=== PATIENT | female | born 1940 | race Caucasian/White ===

== ENCOUNTER → 2017-04-25 10:39 | Outpatient (CLI) | payer MEDICARE, OTHER, SELFPAY ==
[2017-04-25 11:45] LABS: AST(SGOT) 16 U/L (15-37); Alanine Aminotransfer ALT/SGPT 19 U/L (13-56); Albumin, Serum 3.7 g/dL (3.2-5.0); Alkaline Phosphatase 80 U/L (45-117); Bilirubin, Direct 0.13 mg/dL (0.00-0.30); Cholesterol 182 mg/dL (200); Globulin 3.7 g/dL (2.2-4.2); High Density Lipoprotein 42 mg/dL; Protein, Total 7.4 g/dL (6.4-8.2); Triglycerides 170 mg/dL; Very Low Density Lipoprotein 34 mg/dL (5-40)
== END ==
PROVIDERS: Family Provider Student in an Organized Health Care Education/Training Program; PCP Student in an Organized Health Care Education/Training Program; Visit Provider Internal Medicine Cardiovascular Disease
DX: E78.5 Hyperlipidemia, unspecified (principal); Z79.899 Other long term (current) drug therapy
CPT/HCPCS: 36415; 80061; 80076

== ENCOUNTER → 2017-11-01 06:58 | Outpatient (CLI) | payer MEDICARE, OTHER, SELFPAY ==
--- NOTE | 2017-11-01 10:56 | STRESSREP ---
Stress Test Report Date: 11/01/2017 Procedure: Pharmacologic stress nuclear imaging study Indications: CAD; non-ST segment elevation PR; PCI Consent: Per the patient Procedure: The patient underwent pharmacologic (Regadenoson) evaluation with a peak heart rate of 117 beats per minute (81 predicted maximal heart rate) and a peak blood pressure of 134/72 mmHg. The baseline ECG demonstrated normal sinus rhythm; poor R-wave progression; nonspecific ST segment abnormality. The peak pharmacologic ECG demonstrated no obvious ECG changes. There was an occasional PAC during recovery. There was no complaint of chest discomfort during pharmacologic infusion or recovery. The examination was discontinued secondary to completion of protocol. Impression: 1. Pharmacologic (Regadenoson) evaluation 2. Peak pharmacologic ECG with no obvious ECG changes. 3. There was an occasional PAC during recovery 4. Nuclear images pending Myocardial perfusion imaging study: Technique: The patient was injected with 11 millicuries of technetium 99m Cardiolite and subsequently rest SPECT Cardiolite nuclear imaging was obtained in the horizontal long, vertical long, and short axis views. The patient underwent pharmacologic (Regadenoson) evaluation with a peak heart rate of 117 beats per minute (81 % percent predicted maximal heart rate) and a peak blood pressure of 134/72 mmHg. The patient was injected with 33.6 millicuries of technetium 99m Cardiolite and subsequently stress SPECT Cardiolite nuclear imaging was obtained in the horizontal long, vertical long, and short axis views. A gated Cardiolite study at peak stress was obtained. Interpretation: Rest and stress SPECT Cardiolite nuclear imaging status post realignment, normalization, and attenuation correction demonstrate areas of extracardiac/hepatic gastrointestinal tracer uptake near the inferior segments and otherwise relative uniform tracer uptake. There is end systolic thickening and brightening. The gated Cardiolite study demonstrates myocardial thickening and inward wall motion. The reported LVEF is 70 %. Impression: 1. Rest and stress SPECT Cardiolite nuclear imaging demonstrate areas of extracardiac/gastrointestinal tracer uptake near the inferior segments and otherwise relative uniform tracer uptake and myocardial perfusion appearing within normal limits. 2. The gated Cardiolite study reports an LVEF of 70 %. This note was generated with [employer] software. It may contain incorrect words, spelling, and punctuation that were not noted in checking the note before signing.
--- NOTE | 2017-11-01 11:03 | STRESSREP_ITS ---
Stress Test Report Date: 11/01/2017 Procedure: Pharmacologic stress nuclear imaging study Indications: CAD; non-ST segment elevation [place]; PCI Consent: Per the patient Procedure: The patient underwent pharmacologic (Regadenoson) evaluation with a peak heart rate of 117 beats per minute (81 predicted maximal heart rate) and a peak blood pressure of 134/72 mmHg. The baseline ECG demonstrated normal sinus rhythm; poor R-wave progression; nonspecific ST segment abnormality. The peak pharmacologic ECG demonstrated no obvious ECG changes. There was an occasional PAC during recovery. There was no complaint of chest discomfort during pharmacologic infusion or recovery. The examination was discontinued secondary to completion of protocol. Impression: 1. Pharmacologic (Regadenoson) evaluation 2. Peak pharmacologic ECG with no obvious ECG changes. 3. There was an occasional PAC during recovery 4. Nuclear images pending Myocardial perfusion imaging study: Technique: The patient was injected with 11 millicuries of technetium 99m Cardiolite and subsequently rest SPECT Cardiolite nuclear imaging was obtained in the horizontal long, vertical long, and short axis views. The patient underwent pharmacologic (Regadenoson) evaluation with a peak heart rate of 117 beats per minute (81 % percent predicted maximal heart rate) and a peak blood pressure of 134/72 mmHg. The patient was injected with 33.6 millicuries of technetium 99m Cardiolite and subsequently stress SPECT Cardiolite nuclear imaging was obtained in the horizontal long, vertical long, and short axis views. A gated Cardiolite study at peak stress was obtained. Interpretation: Rest and stress SPECT Cardiolite nuclear imaging status post realignment, normalization, and attenuation correction demonstrate areas of extracardiac/ hepatic gastrointestinal tracer uptake near the inferior segments and otherwise relative uniform tracer uptake. There is end systolic thickening and brightening. The gated Cardiolite study demonstrates myocardial thickening and inward wall motion. The reported LVEF is 70 %. Impression: 1. Rest and stress SPECT Cardiolite nuclear imaging demonstrate areas of extracardiac/gastrointestinal tracer uptake near the inferior segments and otherwise relative uniform tracer uptake and myocardial perfusion appearing within normal limits. 2. The gated Cardiolite study reports an LVEF of 70 %. This note was generated with [employer] software. It may contain incorrect words, spelling, and punctuation that were not noted in checking the note before signing.
== END ==
PROVIDERS: Family Provider Student in an Organized Health Care Education/Training Program; PCP Student in an Organized Health Care Education/Training Program; Visit Provider Physician Assistant Medical
DX: I25.10 Atherosclerotic heart disease of native coronary artery without angina pectoris (principal); I10 Essential (primary) hypertension; E78.00 Pure hypercholesterolemia, unspecified
CPT/HCPCS: 78452; 93017; A9500; A4216; J2785

== ENCOUNTER 2018-08-21 16:27 | Emergency (ER) | payer MEDICARE, OTHER, SELFPAY ==
[2018-08-21 16:28] VITALS: BP 145/86; PULSE 88; RESP 17; TEMP 36.8; O2SAT 98; BMI 24.0
--- NOTE | 2018-08-21 16:48 | CT_ITS ---
STUDY: CT ABDOMEN AND PELVIS WITH CONTRAST REASON FOR EXAM: Female, 77 years old. Constipation RADIATION DOSAGE (If Supplied By Facility): DLP = ( 512.27 ) mGycm TECHNIQUE: Transaxial images were obtained from the dome of the diaphragm to the symphysis pubis with oral contrast. 100 ml of Isovue 300 contrast was administered. Sagittal and coronal images were reconstructed. Individualized dose optimization techniques were used for this CT. COMPARISON: None. FINDINGS: The visualized lung bases are clear. The visualized portions of the heart and pericardium are within normal limits. There are no calcified gallstones present. Bulbar wall thickening towards the neck is present, likely reactive. The liver is within normal limits. There are no suspicious hepatic lesions. The spleen is normal in size. There is a 1.1 cm pancreatic head low density lesion, likely representing a cyst. The adrenal glands are within normal limits. There are no obstructing renal stones. There is no hydronephrosis. There are no focal renal lesions. Normal visualized stomach. There is prominent increased fat attenuation surrounding the proximal duodenum with duodenal wall thickening. There is associated regional lymphadenopathy and trace free fluid. 1.9 cm x 0.8 soft tissue density present anterior to the IVC. At the inferior aspect of this is a marginated hyperdense region measuring 1.4 x 1.1 x 1.1 cm in size. Colonic diverticulosis is present. There is no evidence of bowel obstruction. The aorta is normal in caliber. There is no abdominal or pelvic free air. There are no destructive osseous lesions. There is increased fat attenuation posterior to the left ischium. Multilevel degenerative changes of the spine are present. Grade 1 spondylolisthesis is present at the L4-L5 level. CT/Abdomen/Pelvis WITH Contrast IMPRESSION: Increased fat attenuation surrounding the proximal duodenum in association with duodenal wall thickening with prominent associated lymphadenopathy as described above. Consistent in appearance with proximal duodenitis, with possible peptic ulcer disease, neoplasm, infectious, or inflammatory process. Endoscopy is suggested for further assessment. 1.1 cm pancreatic head hypodensity, likely representing a cyst. Possibly represents an IPMN. Pancreatic protocol MRI is suggested for further characterization. Increased fat attenuation posterior to the left ischium. Correlate with physical examination to assess for cellulitis/ulceration. N.B. : The above information has been verbally conveyed by Wili Putnam to Dr. Franky Langston MD, on 08/21/2018 19:51:58 (ET). Electronically Signed: Wili Putnam, at 19:25 EDT Tel , Service support ,
[2018-08-21 17:15] LABS: Absolute Lymphocyte Count 0.82 X10^3/ul (0.83-4.51); Absolute Neutrophil Count 6.2 X10^3/uL (2.0-7.7); Basophil# 0.01 X10^3/uL; Basophil% 0.1 % (0-1); Eosinophil# 0.14 X10^3/uL; Eosinophils% 1.9 % (0-5); Hematocrit 41.7 % (37-47); Hemoglobin 13.6 g/dl (12.0-15.0); Lymphocyte # 0.82 X10^3/ul (4.0); Mean Corp Hgb Conc 32.6 g/gl (32-36); Mean Corpuscular Hgb 29.3 pg (27.0-32.0); Mean Corpuscular Volume 89.9 fL (81-99); Mean Platelet Vol. 10.8 fl (6.2-12.0); Neutrophil # 6.18 X10^3/uL (2.7-7.7); Neutrophil % 82.9 % (47-70); POSITIVE COUNT NO; POSITIVE DIFFERENTIAL NO; POSITIVE MORPHOLOGY NO; Platelet Count 243 K/mm3 (150-450); RBC Distribution Width CV 12.6 % (11.6-14.6); RBC Distribution Width SD 41.1 fl (35.1-43.9); Red Blood Count 4.64 M/mm3 (4.2-5.4); White Blood Count 7.5 K/mm3 (4.4-11.0)
[2018-08-21 17:25] LABS: AST(SGOT) 17 U/L (15-37); Alanine Aminotransfer ALT/SGPT 13 U/L (13-56); Albumin, Serum 3.6 g/dL (3.2-5.0); Alkaline Phosphatase 84 U/L (45-117); Anion Gap 6 (5-15); BUN 12 mg/dL (7-18); BUN/Creat Ratio 15.6 RATIO (10-20); Chloride 107 mmol/L (98-107); Creatinine, Serum 0.77 mg/dL (0.55-1.02); EST Glomerular Filtration Rate 77 mL/min (>60); Est Glom Filt Rate - Afr Amer 94 mL/min (>60); Estimated Creatinine Clearance 40.68 ml/min; Globulin 3.7 g/dL (2.2-4.2); Glucose 93 mg/dL (74-106); Potassium 3.8 mmol/L (3.5-5.1); Protein, Total 7.3 g/dL (6.4-8.2); Sodium Level 140 mmol/L (136-145)
[2018-08-21 18:29] LABS: Mucous, Urine 0 SEEN /hpf (<or=2+)
[2018-08-21 18:38] LABS: Color, Urine Yellow (Yellow); Glucose, Dipstick Normal (Normal); Leukocyte Esterase-Dipstick 500 /ul (Negative); Nitrite-Dipstick Negative (Negative); Occult Blood-Urine 10 /ul (Negative); Protein-Dipstick Negative (Negative); Urine Bilirubin Dipstick Negative (Negative); Urine Clarity Sl. Cloudy (Clear); Urine Urobilinogen 1 mg/dl (Normal)
[2018-08-21 18:41] LABS: Ketone-Dipstick 150 mg/dl (Negative)
[2018-08-21 18:46] LABS: Squamous Epithelial Cells - UA 0-5 SEEN /hpf (5-10); Transitional Epithelial - Ur 0-5 SEEN /hpf (0-5)
[2018-08-21 18:47] LABS: Red Blood Cells-Urine 0-5 SEEN /hpf (0-5); White Blood Cells 50-100 SEEN /hpf (0-5)
[2018-08-21 18:48] VITALS: BP 142/74; PULSE 82; RESP 16; O2SAT 99
[2018-08-21 18:48] LABS: Bacteria RARE /hpf (None Seen)
--- NOTE | 2018-08-21 18:51 | ED.DCSUM_ITS ---
History of Present Illness Chief Complaint: Abd Pain Narrative: Patient presenting for evaluation secondary to abdominal pain. Patient reports over the course of the last month she has been having issues with constipation and abdominal pain. Patient reports that over the course of the last couple days however this has seemed to localize to the right side of her abdomen. She reports that it is not been associated with any sort of nausea vomiting or diarrhea. Patient does report that she is continuing to have constipation despite the use of [id number] remedies. Patient had an ultrasound of her pancreas that showed some cysts, she was supposed to get a scheduled CT scan coming next week, but the pain is getting bad enough to the point where she feels she cannot wait for imaging. Review of systems otherwise negative. Past Medical History - Allergies and Home Meds Allergies/Adverse Reactions: Allergies atorvastatin [From Lipitor] Adverse Reaction (Intermediate, Verified 08/21/18 16:28) myalgias Primary Care Physician: Brian Burks MD [STAFF PHYSICIAN] - As soon as possible Smoking Status: Never smoker Review of Systems All systems negative except as indicated General: Reports: Weight loss Gastrointestinal: Reports: Abdominal pain, Constipation Physical Exam Vital Signs/Narrative: Vital Signs Temp Pulse Resp BP Pulse Ox 08/21/18 18:48 82 16 142/74 H 99 08/21/18 16:28 98.3 F 88 17 145/86 H 98 General: Well nourished, Well developed, No Acute Distress Head: Normocephalic, Atraumatic Eyes: Perrl, EOMI. Negative for: Pale conjunctiva, Scleral icterus ENT: Moist mucous membranes, No rhinorrhea Neck: Supple, Nontender Cardiovascular: Regular rate, Regular rhythm, No murmurs Respiratory: No distress, CTA bilaterally, Chest nontender Abdomen: - - Right-sided abdominal tenderness that does not really localize to the upper or lower abdomen. No guarding or rebound tenderness. No evidence of diffuse rigidity. Extremities: Nontender Skin: Normal color, No rash Neurological: Alert, Oriented x3, Cranial nerves II-XII grossly intact, Normal Strength, Normal Sensation Psychological: Normal affect, Normal Mood Diagnostic/Tx/Re-eval - Medical Decision Making Patient presented secondary to abdominal pain. Laboratory work-up and urinalysis were obtained. CBC and chemistry unremarkable except for a neutrophilic predominance. Chemistry unremarkable. Urinalysis shows evidence of leukocytes in the urine. CT abdomen and pelvis with p.o. and IV contrast were performed. This shows evidence of the patient's pancreatic cyst which she knew about, but also shows a significant amount of duodenitis. I discussed this with the radiologist who says that this likely is either duodenitis versus an ulcer. Given the patient's normal white blood cell count is likely is more of an ulcer. I discussed the patient's case with Dr. Burks. Patient will be emp irically treated with omeprazole, Carafate, and amoxicillin. Patient was discharged in stable condition. Disposition: Home ED Disposition - Plan for ED Patient: Diagnosis: Duodenitis, Pancreatic cyst, UTI (urinary tract infection) Instructions: Duodenitis Prescriptions: Amoxicillin [Amoxil] 500 mg PO Q12H #28 cap Prescription Printed Sucralfate [Carafate] 1 gm PO 4X/DAY #120 tab Prescription Printed Omeprazole 40 mg PO DAILY #30 capsule.dr Prescription Printed Referrals: Brian Burks MD [STAFF PHYSICIAN] - As soon as possible
[2018-08-21 19:12] LABS: Lipase 130 U/L (73-393)
[2018-08-21 20:10] VITALS: BP 156/120; PULSE 69; RESP 16; O2SAT 96
== END 2018-08-21 20:10 ==
PROVIDERS: Emergency Provider Emergency Medicine; Family Provider Student in an Organized Health Care Education/Training Program; PCP Student in an Organized Health Care Education/Training Program
DX: K29.80 Duodenitis without bleeding (principal); K86.2 Cyst of pancreas; N39.0 Urinary tract infection, site not specified
CPT/HCPCS: 74177; 80053; 81001; 83690; 85025; 99283; A4216

== ENCOUNTER 2018-08-26 16:13 | Emergency (ER) | payer MEDICARE, OTHER, SELFPAY ==
[2018-08-26 16:14] VITALS: BP 148/80; PULSE 89; RESP 18; TEMP 36.8; O2SAT 98; BMI 23.6
--- NOTE | 2018-08-26 17:24 | ED.VISSUMM ---
- ER Visit Summary Date of Service: 08/26/18 Chief Complaint: Left flank pain resolved. History of Present Illness: The patient is a 77 F history of CAD, [place], hypertension, cardiac catheter cardiac stent and arthritis. She was seen in the emergency department on 08/21/2018. At that time with complaint of epigastric abdominal pain. Was worked up and found to possibly have duodenitis. Was placed on sucralfate and omeprazole. Also amoxicillin. At that date she had a normal CBC, chemistry, liver enzymes and lipase. Her urine showed blood but no infection. She had a CAT scan done at that time which showed duodenitis and a small kidney stone on the left in the kidney. Otherwise it was chronic changes. Today she was on the toilet urinating and had sudden onset left flank pain that lasted about a half an hour and has now totally resolved. She has decreased vision from a prior central retinal artery occlusion and could not see if she had a blood in her urine. She denies any fever. No dysuria. She has arthritis of her back but states typically she does not have pain like this. Physical Examination: Middle-aged female no acute distress. Daughter and other family members are at bedside. Vital signs are stable and afebrile. She is in no distress. Currently she is completely pain-free. She has no symptoms. States she feels much better. HEENT exam pupils are reactive to light. No facial droop. Normal speech. Neck nontender. Lungs clear to auscultation bilaterally. Heart regular rhythm no murmur. Abdomen soft and nontender normal bowel sounds no peritoneal signs. Abdomen is completely nontender. Remedies moves all 4. Neurovascular intact. Back is nontender. Where she pointed tenderness was around her left flank area. But it is now completely resolved. There is no signs of trauma. Neurologically she is awake and alert with no focal motor deficits. Test Results: I reviewed all the test the patient had on the eighth. She did normal CBC, chemistry, liver enzymes and lipase at that time she had blood in her urine but no signs of infection. She had a CAT scan done which showed duodenitis and most likely a pancreatic cyst. There is also a small stone in her left kidney. I went over all these test with the family. Emergency Department Course and Treatment: Continue her current medications for duodenitis. Today I think the patient's pain was consistent with a kidney stone now passed into her bladder. She just had an extensive work-up I do not feel re-CAT scan her at this time since she is pain-free or rechecking her labs and make any difference. Family is comfortable with that plan. I did strongly encourage him to follow-up for upper endoscopy to further evaluate the duodenitis since she has had some recent weight loss. Treatment Plan: Continue her current medications. Follow-up with her primary care physician for possible upper endoscopy due to epigastric abdominal pain and weight loss and duodenitis seen on a recent CAT scan. Disposition: Discharge Impression: Acute left flank pain resolved secondary to acute ureteral calculi This note was generated with [employer] dictation software. It may contain incorrect words, spelling, and punctuation that were not noted in review of the chart prior to signing ED Disposition - Plan for ED Patient: Referrals: Tariq Akers DO [Primary Care Provider] -
--- NOTE | 2018-08-26 17:31 | ED.DEP ---
ED Disposition - Plan for ED Patient: Disposition: Home or Assisted Living Instructions: FLANK PAIN, Uncertain Cause Referrals: Tariq Akers, [Primary Care Provider] - As soon as possible Additional Instructions: Left flank pain seems to be secondary to kidney stone that she passed. Need to follow-up with your doctor for possible upper endoscopy for further evaluation of the duodenitis and the recent weight loss. Continue the current medications are taking.
== END 2018-08-26 17:40 | disposition home or self-care (01) ==
PROVIDERS: Emergency Provider Emergency Medicine; Family Provider Student in an Organized Health Care Education/Training Program; PCP Student in an Organized Health Care Education/Training Program
DX: N20.1 Calculus of ureter (principal); M54.9 Dorsalgia, unspecified; K59.00 Constipation, unspecified; K29.80 Duodenitis without bleeding; I25.10 Atherosclerotic heart disease of native coronary artery without angina pectoris; I25.2 Old myocardial infarction; I10 Essential (primary) hypertension; H34.10 Central retinal artery occlusion, unspecified eye; M19.90 Unspecified osteoarthritis, unspecified site; Z95.5 Presence of coronary angioplasty implant and graft; Z79.82 Long term (current) use of aspirin; Z79.899 Other long term (current) drug therapy
CPT/HCPCS: 99282

== ENCOUNTER → 2020-10-03 09:16 | Outpatient (CLI) | payer MEDICARE, OTHER, SELFPAY ==
[2020-10-03 12:00] LABS: Hematocrit 46.4 % (37-47); Hemoglobin 14.7 g/dL (12.0-15.0); Mean Corp Hgb Conc 31.7 g/dL (32-36); Mean Corpuscular Hgb 29.5 pg (27.0-32.0); Mean Platelet Vol. 11.7 fl (6.2-12.0); Platelet Count 213 K/mm3 (150-450); RBC Distribution Width CV 13.2 % (11.6-14.6); RBC Distribution Width SD 45.1 fl (35.1-43.9); Red Blood Count 4.99 M/mm3 (4.2-5.4); White Blood Count 10.8 K/mm3 (4.4-11.0)
[2020-10-03 12:20] LABS: Vitamin B12 455 pg/mL (211-911)
[2020-10-03 12:53] LABS: AST(SGOT) 15 U/L (15-37); Alanine Aminotransfer ALT/SGPT 20 U/L (13-56); Albumin, Serum 3.7 g/dL (3.2-5.0); Alkaline Phosphatase 89 U/L (45-117); Anion Gap 8 (5-15); BUN 12 mg/dL (7-18); BUN/Creat Ratio 15.2 RATIO (10-20); Calcium,Total 8.7 mg/dL (8.5-10.1); Chloride 105 mmol/L (98-107); Creatinine, Serum 0.79 mg/dL (0.55-1.02); EST Glomerular Filtration Rate 75 mL/min (>60); Est Glom Filt Rate - Afr Amer 90 mL/min (>60); Globulin 3.7 g/dL (2.2-4.2); Glucose 100 mg/dL (74-106); Potassium 4.2 mmol/L (3.5-5.1); Protein, Total 7.4 g/dL (6.4-8.2); Sodium Level 139 mmol/L (136-145); Thyroid Stim Hormone (TSH) 2.51 uIU/mL (0.358-3.74)
[2020-10-03 13:27] LABS: AST(SGOT) 15 U/L (15-37); Alanine Aminotransfer ALT/SGPT 20 U/L (13-56); Albumin, Serum 3.5 g/dL (3.2-5.0); Alkaline Phosphatase 91 U/L (45-117); Bilirubin, Direct 0.19 mg/dL (0.00-0.30); Cholesterol 184 mg/dL (200); Globulin 4.2 g/dL (2.2-4.2); High Density Lipoprotein 48 mg/dL; Protein, Total 7.7 g/dL (6.4-8.2); Triglycerides 143 mg/dL; Very Low Density Lipoprotein 29 mg/dL (5-40)
[2020-10-08 20:08] LABS: Free Kappa Light Chains 25.3 mg/L (3.3-19.4); Free Lambda Light Chains 16.2 mg/L (5.7-26.3)
[2020-10-08 20:26] LABS: Vitamin B1, Thiamine 163.7 nmol/L (66.5-200.0)
== END ==
PROVIDERS: Psychiatry & Neurology Neurology; PCP Student in an Organized Health Care Education/Training Program; Referring Provider Nurse Practitioner Family; Visit Provider Nurse Practitioner Family
DX: I25.10 Atherosclerotic heart disease of native coronary artery without angina pectoris (principal); E78.00 Pure hypercholesterolemia, unspecified; G62.9 Polyneuropathy, unspecified
CPT/HCPCS: 36415; 80053; 80061; 80076; 82607; 82746; 83883; 84425; 84443; 85027

== ENCOUNTER 2021-06-15 16:55 | Inpatient (IN) | payer MEDICARE, OTHER, SELFPAY ==
[2021-06-15] VITALS (9 sets, daily range): BP systolic 148–166; BP diastolic 76–88; PULSE 79–108; RESP 12–22; TEMP 36.6–37.8; O2SAT 87–97; BMI 24.0; BMI 23.1
--- NOTE | 2021-06-15 17:17 | EKG12_ITS ---
Test Reason : Blood Pressure : / mmHG Vent. Rate : 091 BPM Atrial Rate : 091 BPM P-R Int : 150 ms QRS Dur : 088 ms QT Int : 344 ms P-R-T Axes : 075 -02 048 degrees QTc Int : 423 ms Normal sinus rhythm Nonspecific ST abnormality Abnormal ECG Confirmed by KALEB ISSA, JAMES ([id number]), editor city [place] LINDQUIST ([id number]) on 06/17/2021 9:41:48 AM Referred By: PAPO Confirmed By:JAMES MANUEL MD
--- NOTE | 2021-06-15 17:19 | EDS_ITS ---
HPI History of Present Illness Chief Complaint: Weakness Informant: patient Onset/Context/Timing Onset: Days Context: Gradual Onset Timing: Continuous Current Severity: Mild Maximum Severity: Mild Narrative Narrative: 80-year-old female lives alone at home. History of CAD, MN, stent. Also hypertension prior TIAs. Family notes since Tuesday she has had a cough anything productive. With generalized weakness. No nausea, vomiting or diarrhea. No dysuria. No fever or chills. No recent hospitalizations. Patient presents with her daughter and son at bedside. Prior similar symptoms: Yes Recent Illness/Hospitalization: No PFSH [facility] Medical History (Updated 06/15/21 @ 19:[address] Cesar Carlson MD) Atherosclerosis of coronary artery of [place] heart without angina pectoris Essential hypertension NSTEMI (non-ST elevated myocardial infarction) Old myocardial infarction Presence of stent in coronary artery (~02/22/11) Pure hypercholesterolemia Home Medications aspirin 81 mg tablet,delayed release 81 mg PO DAILY 10/11/17 [History Last Taken Unknown] acetaminophen 500 mg tablet 500 mg PO Q6H PRN 03/15/19 [History Last Taken Unknown] nitroglycerin 0.4 mg sublingual tablet 0.4 mg SUBLINGUAL Q5-15M PRN #25 tab 03/15/19 [Rx Last Taken Unknown] metoprolol tartrate 50 mg tablet 50 mg PO DAILY #90 tab 05/05/20 [Rx Last Taken Unknown] donepezil 10 mg tablet 10 mg PO QHS #90 tab 11/18/20 [Rx Last Taken Unknown] pravastatin 40 mg tablet 60 mg PO DAILY #135 tab 03/03/21 [Rx Last Taken Unknown] losartan 50 mg tablet 50 mg PO DAILY #90 tab 05/27/21 [Rx Last Taken Unknown] Allergy/AdvReac Type Severity Reaction Status Date / Time atorvastatin [From Lipitor] AdvReac Intermediate myalgias Verified 11/18/20 13:04 naproxen AdvReac Other Verified 06/15/21 16:56 Family History Father CAD (coronary artery disease) Mother CVA (cerebral vascular accident) Brother Pacemaker Son Hyperlipidemia Surgical History Presence of coronary angioplasty implant and graft (~02/22/11) Social History Smoking Status: Never smoker alcohol intake: never caffeine: No ROS ROS ED ROS Narrative Cough. Weakness. Review of Systems ROS Unobtainable: Denies due to encephalopathy Constitutional Constitutional ED: Denies chills or fever(s) Eyes Eyes: Denies change in vision ENT ENT ED: Denies ear pain, rhinorrhea or sore throat Cardiovascular Cardiovascular: Denies chest pain or palpitations Respiratory/Chest Respiratory/Chest: Reports cough and sputum; Denies dyspnea Gastrointestinal Gastrointestinal: Denies abdominal pain, constipation, diarrhea, nausea or vomiting Genitourinary Genitourinary ED: Denies dysuria or hematuria Musculoskeletal Musculoskeletal: Denies myalgias Integumentary Denies rash Neurologic Neurologic: Denies headache(s) Psychiatric Psychiatric: Denies depression Endocrine Endocrinology: Denies polyuria Allergic/Immunologic Allergic/Immunologic ED: Denies urticaria EXAM Physical Exam Narrative Exam Narrative: 80-year-old female no acute distress. Vital signs stable afebrile. Pulse ox 96% on room air no hypoxia. H EENT exam unremarkable. Moist mucous members. Neck nontender no JVD. No lymphadenopathy. Lungs dry cough. No rales, rhonchi or wheezing. Equal symmetrical. Heart regular rhythm rate about 105 no murmur. Abdomen soft nontender normal bowel sounds no peritoneal signs. Moving all 4 extremities. Calves are nontender without edema. Neurologically patient is awake and alert with no focal motor deficits. Answering questions following commands. Const Vital Signs: 06/15/21 16:56 06/15/21 17:03 06/15/21 17:30 Temperature 98.1 F Temperature Source Temporal Pulse Rate 108 H Respiratory Rate 12 Respiratory Effort Normal Non-Labored Respiratory Pattern Normal Blood Pressure 148/88 H Blood Pressure Mean 108 Pulse Ox 96 88 Oxygen Delivery Method Room Air Room Air Oxygen Flow Rate (L/min) 06/15/21 17:43 Temperature Temperature Source Pulse Rate Respiratory Rate Respiratory Effort Respiratory Pattern Blood Pressure Blood Pressure Mean Pulse Ox 96 Oxygen Delivery Method Nasal Cannula Oxygen Flow Rate (L/min) 2 Positive well nourished and well developed; Negative for obese, cachectic, contractures or unkempt General Appearance ED: well developed and NAD; Negative for unkempt, cachectic, contractures, cyanotic, diaphoretic or pallor Nutritional Appearance: Negative for cachectic or obese HEENT Reports moist mucous membranes Negative for trauma or tenderness Eyes PERRL and EOMs intact bilaterally Neck no lymphadenopathy, supple and no JVD General: Negative for tenderness Chest Wall inspection of chest normal and palpation of chest normal Resp normal respiratory effort and clear to auscultation bilaterally Auscultation: Negative for rales, rhonchi or wheezes Cardio regular rhythm, S1 normal heart sound, S2 normal heart sound and no murmurs; Negative for regular rate GI normal to inspection, nondistended, normoactive bowel sounds, non-tender, non- distended and no masses Inspection: Negative for abdominal distention Auscultation: normoactive bowel sounds Palpation: soft; Negative for tender, guarding or rebound tenderness present Back/Spine no CVA tenderness General Back: Negative for CVA tenderness Cervical Spine: Negative for cervical spine tenderness Thoracic Spine / Upper Back: Negative for thoracic spinal tenderness or paraspinal muscle tenderness Extremity normal to inspection General Extremety ED: Negative for edema or tenderness General Extremity: Negative for edema Neuro oriented x3 Sensorium / Orientation: alert; Negative for orientation impaired, lethargic or stuporous Motor Exam: strength 5/5 throughout Psych mental status grossly normal Appearance: Negative for unkempt Attitude: No agitated Mood & Affect: Negative for depressed, anxious or tearful Skin no rashes or lesions noted and no wounds General Skin Exam: Negative for elasticity normal, jaundice or pallor MDM MDM MDM Narrative Medical decision making narrative: 80-year-old female with cough and generalized weakness. Screening labs and chest x-ray to be obtained. Clinically this appears to be bronchitis rule out pneumonia rule out COVID versus viral syndrome. Repeat exam patient is doing well at 6:48 PM. They are instructed on the test results. Nurses attempted to walk the patient states she was taken off oxygen she desaturated to 87% on room air consistent with hypoxia. She was also unable to stand by herself due to her weakness. Discussed with her and the family she will be admitted. Hospitalist on page. Lab Data Attestation: I reviewed the patient's lab results. Lab results narrative: CBC White count 7. H&H 14 and 46 platelets 186. Electrolytes normal gap of 7 normal BUN and creatinine. Glucose 121. UA negative. Chest x-ray no acute process. Labs: Laboratory Results - last 24 hr 06/15/21 06/15/2122 17:30 17:30 18:32 WBC 7.0 RBC 5.06 Hgb 14.9 Hct 46.8 MCV 92.5 MCH 29.4 MCHC 31.8 L RDW Std Deviation 44.9 H RDW Coeff of [place] 13.2 Plt Count 186 MPV 11.3 Immature Gran % (Auto) 0.300 Neut % (Auto) 82.9 H Lymph % (Auto) 7.7 L [place] % (Auto) 9.0 Eos % (Auto) 0.0 Baso % (Auto) 0.1 Absolute Neuts (auto) 5.8 Absolute Lymphs (auto) 0.54 L Nucleated RBC % 0 Differential Comment SCANNED Sodium 137 Potassium 4.1 Chloride 106 Carbon Dioxide 24.0 Anion Gap 7 BUN 13 Creatinine 0.88 Estim Creat Clear Calc 44.03 Est GFR (MDRD) Af Amer 79 Est GFR (MDRD) Non-Af 65 BUN/Creatinine Ratio 14.7 Glucose 121 H Calcium 9.2 Urine Color Yellow Urine Clarity Clear Urine pH 5.0 Ur Specific [place] 1.025 Urine Protein 15 H Urine Glucose (UA) Normal Urine Ketones 15 H Urine Occult Blood Negative Urine Nitrite Negative Urine Bilirubin Negative Urine Urobilinogen Normal Ur Leukocyte Esterase Negative Urine RBC 0 SEEN Urine WBC 0 SEEN Ur Squamous Epith Cells 0 SEEN Urine Bacteria 0 SEEN Urine Mucus 0 SEEN Radiography Chest X-Ray - ED: 1 View, Read by ED Physician, Heart, Lungs, Mediastinum, Bony Structures, No Acute Disease and Chronic Changes Diagnostic Testing: Clinical Impression(s) from Imaging Studies Chest X-Ray 06/15/21 17:51 IMPRESSION: 1. No significant interval change since previous study of 01/15/2016. 2. No cardiomegaly or heart failure. 3. Mild emphysema. 4. No other evidence of active cardiopulmonary disease. No findings of a bronchitis. 5. Moderate demineralization. Electronically Signed: Eduardo Villanueva MD at 18:11 EDT , Chest x-ray, portable, single view interpreted myself the radiologist shows no acute abnormality. No infiltrate. No pneumonia. Chronic changes. No signs of COVID on the chest x-ray. Rhythm Strip Rhythm Strip: Sinus Rhythm Rate: 91 Ectopy: None EKG Initial EKG: Attestation: I personally reviewed and interpreted this EKG as follows: Interpretation: Sinus Rhythm and No Acute Injury Pattern Comments: Normal sinus rhythm rate of 91 no acute signs of MN or ischemia. Discharge Plan Dx/Rx/DC Orders Clinical Impression: COVID-19, History of TIAs, History of MN (myocardial infarction), Hypoxia, Weakness, Unable to ambulate Disposition Disposition: Acute Care Hospital [facility]
[2021-06-15] MEDS: 0.9% Normal Saline 1,000 ML 999 ML IV (17:48)
--- NOTE | 2021-06-15 17:51 | RAD_ITS ---
STUDY: AP PORTABLE UPRIGHT CHEST X-RAY OF 1752 HOURS ON 06/15/2021 REASON FOR EXAM: Female, 80 years old. cough TECHNIQUE: A single view AP portable upright chest x-ray was performed per protocol. COMPARISON: 01/15/2016. FINDINGS: Moderate demineralization. Mild thoracic dextroscoliosis. No cardiomegaly. There are no findings of a bronchitis. Mild emphysema.. No confluent infiltrates, atelectasis, effusion, or pulmonary mass lesions. No interval change since previous study of 01/15/2016. RAD/Chest 1 View (Portable) IMPRESSION: 1. No significant interval change since previous study of 01/15/2016. 2. No cardiomegaly or heart failure. 3. Mild emphysema. 4. No other evidence of active cardiopulmonary disease. No findings of a bronchitis. 5. Moderate demineralization. Electronically Signed: Eduardo Villanueva MD at 18:11 EDT ,
[2021-06-15 17:52] LABS: Anion Gap 7 (5-15); BUN 13 mg/dL (7-18); BUN/Creat Ratio 14.7 RATIO (10-20); Calcium,Total 9.2 mg/dL (8.5-10.1); Chloride 106 mmol/L (98-107); Creatinine, Serum 0.88 mg/dL (0.55-1.02); EST Glomerular Filtration Rate 65 mL/min (>60); Est Glom Filt Rate - Afr Amer 79 mL/min (>60); Estimated Creatinine Clearance 44.03 ml/min; Glucose 121 mg/dL (74-106); Potassium 4.1 mmol/L (3.5-5.1); Sodium Level 137 mmol/L (136-145)
[2021-06-15 17:53] LABS: Absolute Lymphocyte Count 0.54 X10^3/uL (0.83-4.51); Absolute Neutrophil Count 5.8 X10^3/uL (2.0-7.7); Basophil# 0.01 X10^3/uL; Basophil% 0.1 % (0-1); Hematocrit 46.8 % (37-47); Hemoglobin 14.9 g/dL (12.0-15.0); Lymphocyte # 0.54 X10^3/ul (0.83-4.51); Lymphocyte % 7.7 % (19-41); Mean Corp Hgb Conc 31.8 g/dL (32-36); Mean Corpuscular Hgb 29.4 pg (27.0-32.0); Mean Corpuscular Volume 92.5 fL (81-99); Mean Platelet Vol. 11.3 fl (6.2-12.0); Monocyte# 0.63 X10^3/uL; NRBC Flagged by Analyzer 0 % (0-5); Neutrophil # 5.82 X10^3/uL (2.7-7.7); Neutrophil % 82.9 % (47-70); POSITIVE DIFFERENTIAL YES; Platelet Count 186 K/mm3 (150-450); RBC Distribution Width CV 13.2 % (11.6-14.6); RBC Distribution Width SD 44.9 fl (35.1-43.9); Red Blood Count 5.06 M/mm3 (4.2-5.4)
[2021-06-15 18:20] LABS: Differential Comment SCANNED; Differential Indicated SCAN CRITERIA MET
[2021-06-15 18:36] LABS: Bacteria 0 SEEN /hpf (None Seen); Mucous, Urine 0 SEEN /hpf (<or=2+); Red Blood Cells-Urine 0 SEEN /hpf (0-5); Squamous Epithelial Cells - UA 0 SEEN /hpf (5-10); White Blood Cells 0 SEEN /hpf (0-5)
[2021-06-15 18:38] LABS: Color, Urine Yellow (Yellow); Glucose, Dipstick Normal (Normal); Ketone-Dipstick 15 mg/dl (Negative); Leukocyte Esterase-Dipstick Negative /ul (Negative); Nitrite-Dipstick Negative (Negative); Occult Blood-Urine Negative /ul (Negative); Protein-Dipstick 15 mg/dl (Negative); Specific Gravity, Urine 1.025 (1.002-1.030); Urine Bilirubin Dipstick Negative (Negative); Urine Clarity Clear (Clear); Urine Urobilinogen Normal (Normal)
--- NOTE | 2021-06-15 19:28 | HP.PCM.HOS_ITS ---
HPI - General General Date of Admission: 06/15/21 Date of Service: 06/15/21 Chief Complaint: Fatigue, malaise, cough, weakness. HPI Narrative The patient is an 80 y/o F w/ PMHx: Hx CVA, Dementia unclear type without behavioral disturbance history, CAD s/p PCI, HTN, HLD who presents to the [facility] ED on 06/15/21 with history of onset cough on Tuesday with progressively worsening fatigue, weakness, malaise, notable worsening dyspnea which was more pronounced with exertional attempts with family noting she been mildly fatigued on Tuesday and seemed to be more winded with a walk even though it was shortened distance with poor oral intake since Tuesday with no fever, headache, body aches, nausea, emesis, abdominal discomfort, diarrhea, alteration to sense of taste or smell but given significant decline and severe weakness taking several family members to even get her moved prompted ED evaluation. Patient does not leave her home and notes that only her 3 children and one of the person have visited. All of them deny any symptoms but from discussions potentially are unvaccinated of note patient did not receive the COVID-19 vaccination. Work-up in the ED included T98.1, heart rate 108, BP 148/88, respiratory rate initially 96 however with ambulation patient dropped to 87% on room air with improvement to 93 to 96% on 2 L nasal cannula, CBC with WC 7, hemoglobin 14.9, platelet 186 with lymphopenia, BMP unremarkable aside glucose 121, urinalysis with evidence of dehydration otherwise no acute findings, chest x-ray with no acute cardiopulmonary findings, rapid COVID testing positive. In the ED patient ministered normal saline. [facility] Medical History (Updated 06/15/21 @ 19:[address] Cesar Carlson MD) Atherosclerosis of coronary artery of [place] heart without angina pectoris Essential hypertension NSTEMI (non-ST elevated myocardial infarction) Old myocardial infarction Presence of stent in coronary artery (~02/22/11) Pure hypercholesterolemia Home Medications aspirin 81 mg tablet,delayed release 81 mg PO DAILY 10/11/17 [History Last Taken Unknown] acetaminophen 500 mg tablet 500 mg PO Q6H PRN 03/15/19 [History Last Taken Unknown] nitroglycerin 0.4 mg sublingual tablet 0.4 mg SUBLINGUAL Q5-15M PRN #25 tab 03/15/19 [Rx Last Taken Unknown] metoprolol tartrate 50 mg tablet 50 mg PO DAILY #90 tab 05/05/20 [Rx Last Taken Unknown] donepezil 10 mg tablet 10 mg PO QHS #90 tab 11/18/20 [Rx Last Taken Unknown] pravastatin 40 mg tablet 60 mg PO DAILY #135 tab 03/03/21 [Rx Last Taken Unknown] losartan 50 mg tablet 50 mg PO DAILY #90 tab 05/27/21 [Rx Last Taken Unknown] Allergy/AdvReac Type Severity Reaction Status Date / Time atorvastatin [From Lipitor] AdvReac Intermediate myalgias Verified 11/18/20 13:04 naproxen AdvReac Other Verified 06/15/21 16:56 Family History Father CAD (coronary artery disease) Mother CVA (cerebral vascular accident) Brother Pacemaker Son Hyperlipidemia Surgical History Presence of coronary angioplasty implant and graft (~02/22/11) Social History (Updated 06/15/21 @ 20:[address] Carmen Suarez MD) household members: none Smoking Status: Never smoker alcohol intake: never substance use type: does not use caffeine: No ROS ROS Narrative Admission Review of Systems: CONSTITUTIONAL: No weight loss, fever, chills, + weakness or fatigue. HEENT: Eyes: No visual loss, blurred vision, double vision or yellow sclerae. Ears, Nose, Throat: No hearing loss, sneezing. SKIN: No rash or itching, lesions, wounds. CARDIOVASCULAR: No chest pain, chest pressure or chest discomfort, palpitations, edema, orthopnea, syncopal events. RESPIRATORY: + shortness of breath, cough, No marked sputum, wheezing, hemoptysis. GASTROINTESTINAL: + anorexia, No nausea, vomiting, diarrhea, abdominal pain, melena, BRBPR. GENITOURINARY: No dysuria, frequency, urgency or retention. NEUROLOGICAL: Hx CVA, No headache, dizziness, syncope, paralysis, ataxia, numbness or tingling in the extremities, new focal weakness, change in bowel or bladder control, seizure. MUSCULOSKELETAL: + muscle, back pain, joint pain or stiffness. HEMATOLOGIC: No anemia, bleeding or bruising. LYMPHATICS: No enlarged nodes. No history of splenectomy. PSYCHIATRIC: No history of depression or anxiety. ENDOCRINOLOGIC: No reports of sweating, cold or heat intolerance. No polyuria or polydipsia. ALLERGIES: No history of asthma, hives, eczema or rhinitis. Vital Signs Vital Signs Vital Signs: 06/15/21 16:56 06/15/21 17:03 06/15/21 17:30 Temperature 98.1 F Temperature Source Temporal Pulse Rate 108 H Respiratory Rate 12 Respiratory Effort Normal Non-Labored Respiratory Pattern Normal Blood Pressure 148/88 H Blood Pressure Mean 108 Pulse Ox 96 88 Oxygen Delivery Method Room Air Room Air Oxygen Flow Rate (L/min) 06/15/21 17:43 06/15/21 19:00 06/15/21 19:15 Temperature Temperature Source Pulse Rate Respiratory Rate Respiratory Effort Respiratory Pattern Blood Pressure Blood Pressure Mean Pulse Ox 96 87 93 Oxygen Delivery Method Nasal Cannula Room Air Nasal Cannula Oxygen Flow Rate (L/min) 2 2 Weight Weight: 140 lb Body Mass Index (BMI) 24.0 Physical Exam Narrative Physical Examination: General: Awake, alert, oriented x 3 and cooperative, seated upright in the ED bed, fatigued and ill-appearing, mildly increased respiratory rate. Skin: Normal color, normal turgor, no icterus, no cyanosis. HEENT: AT/NC, EOMI, PERRLA, moderately dry MM, no carotid bruits or JVD noted. Lungs: Diffusely diminished, greater bases, mildly increased respiratory rate, no rales, ronchi or wheezing. Heart: Mildy tachycardic with regular rhythm; no gallop, rub audible. Abdomen: Soft, no obvious TTP, ND, mildly hyperactive bowel sounds, no HSM. Extremities: No cyanosis, clubbing, or edema. Neurological: Patient awake, alert, oriented as noted, cognitive function appears baseline intact with underlying mild dementia; pupils equally reactive to light and accommodation, cranial nerves grossly normal, moving all 4 extremities, strength severely global decrease secondary to acute presentation. Psychiatric: Affect appears fatigued, ill-appearing, no acute evidence of depressive or anxiety feelings. Results Lab / Micro Data Result Diagrams: 06/15/21 17:30 06/15/21 17:30 Labs: Laboratory Results - last 24 hr 06/15/21 17:30: WBC 7.0, RBC 5.06, Hgb 14.9, Hct 46.8, MCV 92.5, MCH 29.4, MCHC 31.8 L, RDW Std Deviation 44.9 H, RDW Coeff of [place] 13.2, Plt Count 186, MPV 11.3, Immature Gran % (Auto) 0.300, Neut % (Auto) 82.9 H, Lymph % (Auto) 7.7 L, [place] % (Auto) 9.0, Eos % (Auto) 0.0, Baso % (Auto) 0.1, Absolute Neuts (auto) 5.8, Absolute Lymphs (auto) 0.54 L, Nucleated RBC % 0, Differential Comment SCANNED 06/15/21 17:30: Sodium 137, Potassium 4.1, Chloride 106, Carbon Dioxide 24.0, Anion Gap 7, BUN 13, Creatinine 0.88, Estim Creat Clear Calc 44.03, Est GFR (MDRD) Af Amer 79, Est GFR (MDRD) Non-Af 65, BUN/Creatinine Ratio 14.7, Glucose 121 H, Calcium 9.2 06/15/21 18:32: Urine Color Yellow, Urine Clarity Clear, Urine pH 5.0, Ur Specific [place] 1.025, Urine Protein 15 H, Urine Glucose (UA) Normal, Urine Ketones 15 H, Urine Occult Blood Negative, Urine Nitrite Negative, Urine Bilirubin Negative, Urine Urobilinogen Normal, Ur Leukocyte Esterase Negative, Urine RBC 0 SEEN, Urine WBC 0 SEEN, Ur Squamous Epith Cells 0 SEEN, Urine Bacteria 0 SEEN, Urine Mucus 0 SEEN Micro: Microbiology 06/15/21 17:30 Nasal Secretion SARS-CoV-2 Antigen (Rapid) - Final SARS-CoV-2 (COVID 19) Rhythm Strip Rhythm Strip: Sinus Rhythm Rate: 91 Ectopy: None Radiology Impression Chest X-Ray 06/15/21 17:51 IMPRESSION: 1. No significant interval change since previous study of 01/15/2016. 2. No cardiomegaly or heart failure. 3. Mild emphysema. 4. No other evidence of active cardiopulmonary disease. No findings of a bronchitis. 5. Moderate demineralization. Electronically Signed: Eduardo Villanueva MD at 18:11 EDT , Assessment & Plan Assessment/Plan (1) Hypoxia: (2) COVID-19: PLAN: The patient is an 80 y/o F w/ PMHx: Hx CVA, Dementia unclear type without behavioral disturbance history, CAD s/p PCI, HTN, HLD who presents to the [facility] ED on 06/15/21 with history of onset cough on Tuesday with progressively worsening fatigue, weakness, malaise, notable worsening dyspnea which was more pronounced with exertional attempts with family noting she been mildly fatigued on Tuesday and seemed to be more winded with a walk even though it was shortened distance with poor oral intake since Tuesday. #1. Acute Hypoxia secondary to Acute Viral Syndrome, COVID-19: Will admit to th e [facility], maintain on COVID precautions, will maintain on oxygen with wean as tolerated to room air, PRN albuterol, HOB, IS parameters w/ pending sputum cultures, respiratory viral panel and urine antigens, will obtain D-dimer, procalcitonin, trop, CRP, CPK, Ferritin, LDH and BNP, continue supportive care including q 2 hour turning including prone given no prone bed availability and judicious hydration, closely monitor for worsening status for ARDS and multiorgan failure, will initiate and continue IV decadron x 10 doses, given presentation will also initiate IV remdesivir but defer to discretion of Infectious disease. If respiratory status worsens and patient requires airvo or BIPAP transition will initiate barcitinib regimen additionally with ID involvement. #2. CAD: Status post PCI, will continue patient aspirin, statin, metoprolol and losartan regimen. #3. Dementia, unclear type without behavior disturbance history: We will continue patient home donepezil regimen, maintain on fall precautions, complicates presentation. #4. Hx CVA: Aspirin, statin, hypertensive regimen as noted. #5. Hypertension: Continue home regimen including metoprolol, losartan with hold parameters as needed, PRN hydralazine. #6. Hyperlipidemia: We will continue patient on statin therapy. #7. DVT prophylaxis: SCDs, Lovenox. #8. CODE status: Patient FLORENCIO is her daughter who is present and living will is currently in place. Discussed CODE status at length including difference between FULL code, DNR-CCA and DNR-CC status. Following discussions about the differences in these status, requested DNR-CCA, no intubation, no aggressive treatments, specifically declined any antiviral treatments, may be amenable to BIPAP if becomes necessary. Advanced Care Planning Face to Face Time: 16 minutes. Charges/Coding Visit Charges Inpatient E&M: 56298 Init Hosp L3 Procedures Hospitalists Procedures: 05362 Advncd Care Plan 30 Min
--- NOTE | 2021-06-15 20:06 | ED.RN ---
Addendum entered by Matt Bowman 06/15/21 20:10: Dr. Suarez made aware of family wishes Original Note: per family request and speaking with Catherine SORIANO patient does not want patient to receive Remdesivir for covid and would not like patient placed on ventilation if the patient would require it.
[2021-06-15 21:55] LABS: AST(SGOT) 39 U/L (15-37); Alanine Aminotransfer ALT/SGPT 24 U/L (13-56); Albumin, Serum 3.5 g/dL (3.2-5.0); Alkaline Phosphatase 72 U/L (45-117); Bilirubin, Direct 0.08 mg/dL (0.00-0.30); Ferritin 780 ng/mL (8-252); Globulin 3.9 g/dL (2.2-4.2); LDH 297 U/L (84-246); Protein, Total 7.4 g/dL (6.4-8.2); Troponin-I HS 15 pg/mL (3.0-54.0)
[2021-06-15] MEDS: dexAMETHasone 10 MG/ML Vial 6 MG IV (22:39)
[2021-06-15] MEDS: 0.9% Saline Lock 10 ML Syringe IV ×2 (22:40→23:54)
[2021-06-15] MEDS: 0.9% Normal Saline 1,000 ML 100 ML IV (22:40)
[2021-06-15] MEDS: Pravastatin 20 MG Tablet 60 MG PO (22:42)
[2021-06-15] MEDS: Donepezil HCl 10 MG Tablet PO (22:42)
[2021-06-15] MEDS: Enoxaparin 30 MG/0.3 ML Syringe SC (22:43)
[2021-06-15 23:06] LABS: Procalcitonin 0.05 ng/mL (0.00-0.09)
--- NOTE | 2021-06-15 23:06 | CT_ITS ---
STUDY: PULMONARY AND CHEST CT ANGIOGRAPHY OF 2341 HOURS ON 06/15/2021 REASON FOR EXAM: 80-year-old female with chest pain. Evaluate for pulmonary thromboembolism. RADIATION DOSAGE (If Supplied By Facility): CTDIvol = ( 6.00 ) mGy, DLP = ( 168.27 ) mGycm TECHNIQUE: The examination was performed with the intravenous administration of IV 100mL [id number]-[id number]. Post-processing of the angiographic images was performed, with multiplanar reformation and 3D reconstruction. Individualized dose optimization techniques were used for this CT. COMPARISON: None. FINDINGS: Mild demineralization. Mild cardiomegaly. No hilar or mediastinal lymphadenopathy. No pulmonary infiltrates, atelectasis, effusion, or pulmonary mass lesions. There is a small non-occlusive thrombus in a second order branch of the left lower lobe pulmonary artery. There are no other findings of pulmonary thromboembolism. There is no evidence of thoracic aortic dissection or aneurysm. Mild calcific atherosclerotic changes of the thoracic aorta are noted. CT/CTA Chest W/WO Contrast IMPRESSION: 1. Mild pulmonary thromboembolism with a small non-occlusive thrombus in a second order branch of the left lower lobe pulmonary artery. 2. No other findings of pulmonary thromboembolism. 3. No evidence of a thoracic aortic dissection or aneurysm. 4. Mild cardiomegaly. 5. No adenopathy or evidence of active cardiopulmonary disease. Electronically Signed: Eduardo Villanueva MD at 0:21 EDT ,
--- NOTE | 2021-06-15 23:08 | PN.HOSP_ITS ---
Hospitalist Note Notified by Angel LOSON patient's D-dimer 1.3. Patient is positive for COVID. CTA with and without contrast ordered.
--- NOTE | 2021-06-15 23:08 | PCM.HOSP.N ---
Hospitalist Note Notified by Angel OLSON patient's D-dimer 1.3. Patient is positive for COVID. CTA with and without contrast ordered.
[2021-06-16] VITALS (13 sets, daily range): BP systolic 131–153; BP diastolic 79–89; PULSE 55–96; RESP 16–18; TEMP 36.3–36.6; O2SAT 91–100
--- NOTE | 2021-06-16 01:10 | PCM.HOSP.N ---
Hospitalist Note CTA positive for PE. Patient's enoxaparin dose increased from 30 mg every 12 hours to 60 mg every 12 hours.
[2021-06-16 06:28] LABS: Absolute Lymphocyte Count 0.41 X10^3/uL (0.83-4.51); Absolute Neutrophil Count 7.5 X10^3/uL (2.0-7.7); Hematocrit 42.9 % (37-47); Hemoglobin 13.7 g/dL (12.0-15.0); Lymphocyte # 0.41 X10^3/ul (0.83-4.51); Mean Corp Hgb Conc 31.9 g/dL (32-36); Mean Corpuscular Hgb 29.9 pg (27.0-32.0); Mean Corpuscular Volume 93.7 fL (81-99); Mean Platelet Vol. 11.3 fl (6.2-12.0); Monocyte# 0.28 X10^3/uL; Monocyte% 3.4 % (0-10); NRBC Flagged by Analyzer 0 % (0-5); Neutrophil # 7.48 X10^3/uL (2.7-7.7); Neutrophil % 91.2 % (47-70); POSITIVE DIFFERENTIAL YES; Platelet Count 145 K/mm3 (150-450); RBC Distribution Width SD 44.2 fl (35.1-43.9); Red Blood Count 4.58 M/mm3 (4.2-5.4); White Blood Count 8.2 K/mm3 (4.4-11.0)
[2021-06-16 06:29] LABS: Differential Indicated SCAN CRITERIA MET
[2021-06-16 06:45] LABS: Differential Comment SCANNED
[2021-06-16 06:55] LABS: ALB/GLOB Ratio 0.8 RATIO (0.9-2.4); AST(SGOT) 33 U/L (15-37); Alanine Aminotransfer ALT/SGPT 21 U/L (13-56); Alkaline Phosphatase 64 U/L (45-117); Anion Gap 7 (5-15); BUN 11 mg/dL (7-18); BUN/Creat Ratio 16.9 RATIO (10-20); Calcium,Total 8.1 mg/dL (8.5-10.1); Chloride 108 mmol/L (98-107); Creatinine, Serum 0.65 mg/dL (0.55-1.02); EST Glomerular Filtration Rate 93 mL/min (>60); Est Glom Filt Rate - Afr Amer 113 mL/min (>60); Estimated Creatinine Clearance 38.75 ml/min; Globulin 3.6 g/dL (2.2-4.2); Glucose 161 mg/dL (74-106); Potassium 3.4 mmol/L (3.5-5.1); Protein, Total 6.6 g/dL (6.4-8.2); Sodium Level 137 mmol/L (136-145)
[2021-06-16] MEDS: Potassium Chloride Oral Tablet 20 MEQ 40 MEQ PO (08:00)
[2021-06-16] MEDS: Enoxaparin 60 MG/0.6 ML Syringe SC ×2 (09:18→20:44)
[2021-06-16] MEDS: 0.9% Saline Lock 10 ML Syringe IV (09:19)
[2021-06-16] MEDS: Aspirin E.C. 81 MG Tablet PO (09:19)
[2021-06-16] MEDS: Losartan Potassium 50 MG Tablet PO (09:20)
[2021-06-16] MEDS: dexAMETHasone 10 MG/ML Vial 6 MG IV (09:21)
[2021-06-16] MEDS: Metoprolol Tartrate 50 MG Tablet PO (09:31)
--- NOTE | 2021-06-16 10:03 | PN.HOSP_ITS ---
Subjective Subjective Patient seen and examined. She is on 6L of oxygen. She is coughing. She denies any shortness of breath, chest pain, palpitations, dizziness, nausea or vomiting. Review of systems is otherwise negative. Objective Data Objective Data Vital Signs: Vital Signs Temp Pulse Resp BP Pulse Ox 97.8 F 65 18 146/79 H 100 06/16/21 09:30 06/16/21 09:31 06/16/21 09:30 06/16/21 09:31 06/16/21 09:30 Oxygen Flow Rate (L/min) 6 Oxygen Delivery Method Nasal Cannula Weight: 134 lb 14.766 oz Body Mass Index (BMI) 23.1 Intake & Output: Intake and Output for Last 24 Hours 06/14/21 06/15/21 06/16/21 23:59 23:59 23:59 Intake Total 1000 / 1300 1420 / 1420 Output Total 700 / 700 Balance 1000 / 900 720 / 720 Lab / Micro Data Result Diagrams: 06/16/21 06:05 06/16/21 06:05 Labs: Laboratory Results - last 24 hr 06/15/21 17:30: WBC 7.0, RBC 5.06, Hgb 14.9, Hct 46.8, MCV 92.5, MCH 29.4, MCHC 31.8 L, RDW Std Deviation 44.9 H, RDW Coeff of Keiry 13.2, Plt Count 186, MPV 11 .3, Immature Gran % (Auto) 0.300, Neut % (Auto) 82.9 H, Lymph % (Auto) 7.7 L, [place] % (Auto) 9.0, Eos % (Auto) 0.0, Baso % (Auto) 0.1, Absolute Neuts (auto) 5.8, Absolute Lymphs (auto) 0.54 L, Nucleated RBC % 0, Differential Comment SCANNED 06/15/21 17:30: Sodium 137, Potassium 4.1, Chloride 106, Carbon Dioxide 24.0, Anion Gap 7, BUN 13, Creatinine 0.88, Estim Creat Clear Calc 44.03, Est GFR (MDRD) Af Amer 79, Est GFR (MDRD) Non-Af 65, BUN/Creatinine Ratio 14.7, Glucose 121 H, Calcium 9.2 06/15/21 17:30: Ferritin 780 H, Total Bilirubin 0.50, Direct Bilirubin 0.08, AST 39 H, ALT 24, Alkaline Phosphatase 72, Lactate Dehydrogenase 297 H, Troponin I High Sens 15, C-React Prot Ext Range 16.80 H, Total Protein 7.4, Albumin 3.5, Globulin 3.9 06/15/21 17:30: B-Natriuretic Peptide 24.0 06/15/21 18:32: Urine Color Yellow, Urine Clarity Clear, Urine pH 5.0, Ur Specific [place] 1.025, Urine Protein 15 H, Urine Glucose (UA) Normal, Urine Ketones 15 H, Urine Occult Blood Negative, Urine Nitrite Negative, Urine Bilirubin Negative, Urine Urobilinogen Normal, Ur Leukocyte Esterase Negative, Urine RBC 0 SEEN, Urine WBC 0 SEEN, Ur Squamous Epith Cells 0 SEEN, Urine Bacteria 0 SEEN, Urine Mucus 0 SEEN 06/15/21 22:28: D-Dimer Quant (PE/DVT) 1.30 H* 06/15/21 22:28: Procalcitonin 0.05 06/16/21 06:05: WBC 8.2, RBC 4.58, Hgb 13.7, Hct 42.9, MCV 93.7, MCH 29.9, MCHC 31.9 L, RDW Std Deviation 44.2 H, RDW Coeff of Keiry 13.0, Plt Count 145 L, MPV 11.3, Immature Gran % (Auto) 0.400, Neut % (Auto) 91.2 H, Lymph % (Auto) 5.0 L, [place] % (Auto) 3.4, Eos % (Auto) 0.0, Baso % (Auto) 0.0, Absolute Neuts (auto) 7.5, Absolute Lymphs (auto) 0.41 L, Nucleated RBC % 0, Differential Comment SCANNED 06/16/21 06:05: Sodium 137, Potassium 3.4 L, Chloride 108 H, Carbon Dioxide 22.0, Anion Gap 7, BUN 11, Creatinine 0.65, Estim Creat Clear Calc 38.75, Est GFR (MDRD) Af Amer 113, Est GFR (MDRD) Non-Af 93, BUN/Creatinine Ratio 16.9, Glucose 161 H, Calcium 8.1 L, Total Bilirubin 0.30, AST 33, ALT 21, Alkaline Phosphatase 64, Total Protein 6.6, Albumin 3.0 L, Globulin 3.6, Albumin/Globulin Ratio 0.8 L Micro: Microbiology 06/15/21 22:55 Mucosa - Nasopharyngeal Respiratory Panel (PCR) - Final 06/15/21 18:32 Urine Catheter - Catheter Legionella Antigen - Final 06/15/21 18:32 Urine Catheter - Catheter Streptococcus pneumoniae Antigen (M - Final 06/15/21 17:30 Nasal Secretion SARS-CoV-2 Antigen (Rapid) - Final SARS-CoV-2 (COVID 19) Radiography Diagnostic Testing: Radiology Impression Chest X-Ray 06/15/21 17:51 IMPRESSION: 1. No significant interval change since previous study of 01/15/2016. 2. No cardiomegaly or heart failure. 3. Mild emphysema. 4. No other evidence of active cardiopulmonary disease. No findings of a bronchitis. 5. Moderate demineralization. Electronically Signed: Eduardo Villanueva MD at 18:11 EDT , Chest CTA 06/15/21 23:06 IMPRESSION: 1. Mild pulmonary thromboembolism with a small non-occlusive thrombus in a second order branch of the left lower lobe pulmonary artery. 2. No other findings of pulmonary thromboembolism. 3. No evidence of a thoracic aortic dissection or aneurysm. 4. Mild cardiomegaly. 5. No adenopathy or evidence of active cardiopulmonary disease. Electronically Signed: Eduardo Villanueva MD at 0:21 EDT , Rhythm Strip Rhythm Strip: Sinus Rhythm Rate: 91 Ectopy: None Physical Exam Const alert Orientation / Consciousness: lethargic Exam Limitations: no limitations HEENT head/scalp atraumatic Head and Scalp: normocephalic Mouth: dry mucous membranes Eyes PERRL, EOMs intact bilaterally and conjunctivae normal Neck no lymphadenopathy, supple and no JVD Resp Resp Narrative: diminished breath sounds bilaterally, bilateraly crackles. no wheezing; on 6L of oxygen by nasal canula Cardio regular rate, regular rhythm, S1 normal heart sound, S2 normal heart sound and no murmurs GI normal to inspection, nondistended, normoactive bowel sounds, soft to palpation, non-tender and non-distended Extremity normal to inspection, full ROM and no clubbing, cyanosis or edema Peripheral Pulses: Yes pulses 2+ throughout Skin no rashes or lesions noted Neuro oriented x3, CN's II-XII intact bilaterally and moves all extremities Sensorium / Orientation: awake and alert Psych affect normal Assessment & Plan Assessment/Plan (1) COVID-19: (2) Acute respiratory failure with hypoxia: PLAN: #Acute hypoxic respiratory failure due to covid 19 pneumonia and PE * now on 6L of oxygen; was on 2L at time of admission * not vaccinated * on decadron. Family apparently refused remdesivir * breathing treatment with bronchodilators. * titrate oxygen to maintain sats >90% * #Pulmonary embolism * D dimer was elevated, and CTA showed a small non occlusive thrombus in the second order branch of the left lower lobe pulmonary artery * on therapeutic lovenox * #CAD: s/p PCI. on aspirin, statin, metoprolol and losartan #Dementia * on donepezil * fall precautions * #History of CVA: on aspirin and statin #Hypertension; on metoprolol and losartan #Hyperlipidemia: on statin DVT prophylaxis: lovenox Code status: DNRCCA no intubation 1:53pm It was documented in H&P that patient would be given remdesivir. I clarified with nurse this morning whether patient had received remdesivir and if there was any reason to preclude her receiving remdesivir. Patient's nurse stated patient hadnt received remdesivir, and she wasnt aware of any reason why she hadnt received it. In light of patient's increased oxygen requirements from 2L of oxygen on admission to 6L at time of review this morning, hospitalist therefore ordered remdesivir. Patient received first dose. Hospitalist was informed during rounds with caser up and charge nurse that patient's daughter had actually requested that patient not receive remdesivir. Hospitalist therefore ordered that remdesivir be discontinued in light of this new information brought to the fore. Hospitalist was informed by charge nurse this afternoon that patient's daughter was very irate that her mother had received remdesivir; she had apparently been verbally aggressive to the nurses on the phone and said she was coming to take her mother home and would order oxygen through [employer] herself; she also didnt want to see or talk to the hospitalist. This hospitalist explained to charge nurse that patient couldnt be discharged home as her oxygen requirements had increased from 2L on admission to 6L, and she could potentially deteriorate further especially since she was unvaccinated. The only recourse daughter would have to take her mother home would be to sign out AGAINST MEDICAL ADVICE. Hospitalist consulted patient advocate and steel shot header operator as well as compliance should be informed and involved in the case. 4:01pm Hospitalist was informed by charge nurse that patient's daughter was in and requesting that hospitalist provide prescription for oxygen. This hospitalist refused to give a prescription for oxygen since patient was not stable for discharge. Hospitalist was informed that she had been fired by patient's daughter and the patient's daughter was saying that the only condition under which she would allow her mother to stay in the hospital was if she was allowed to sleep by her mother throughout the night. Charges/Coding Visit Charges Inpatient E&M: 21626 Subs Hosp L3
--- NOTE | 2021-06-16 12:45 | CASEMGMT ---
Addendum entered by Gladys Gorman 06/16/21 13:47: Received a tc back from pt dtr who states that she needs the oxygen and HHC expedited as she is coming in to yank the patient out of the hospital as the hospital did not follow her wishes. She states she has it in writing and she knew you guys wouldn't follow it. Made her aware this RN CM was not aware of the situation. She states she recently spoke with the charge nurse. She demanded RN CM to get the oxygen set up and states she will be in to take her mother home. Made her aware that this RN CM will speak with the charge nurse regarding the situation. She hung up the phone. Spoke with charge nurse, called [employer] garage manager to make aware of the situation as well. Original Note: RN CM Assessment: Face to Face with pt for initial transition planning/care coordination assessment. RN CM introduced self and role at [facility], pt voices understanding and consents to assessment. Pt is A/O x3, did not know the president and answers questions appropriately at this time. Patient could not verify her son or daughter's address and phone and asked this RN CM to contact her dtr. She states she would be the designated person to discuss dc planning with. Care providers, pharmacy, and demographics verified/updated per t/c with dtr. Admitting Dx: hypoxia, COVID PCP:O[facility]ald Specialists:[facility] Wootne Pharmacy: [facility] Insurance: MCR, [employer] Prescription Benefit: yes LW/HPOA: Pt is unsure if she has a LW/DPOA. Spoke with dtr. Dtr states she is the DPOA and she will think about it when asked if she could bring copy in to be scanned into pt chart. LNOK: Catherine Espinoza, belkys; leslie Newton Living Arrangements: Pt lives alone in a single story house with no steps to enter. Pt reports she was I in ADL's and denies concerns at home. Transportation: Pt dtr provides transportation for pt. DME/HHC/SNF: Pt has a walker, grab bar by the toilet and a shower bench at home. Pt denies hx of HHC or SNF stays. Pt states no concerns with going home at time of dc. Discussed should pt need O2 at dc and provided pt with local list of DME companies. Pt denies preference. TC to pt dtr. She states she is trying to get a privately paid ORTHODONTIST to with patient. She states she is having internet put in at her mother's house to work and stay with her day and night. She would like the patient to be dc'd KIMBERLI from the hospital. Discussed that pt would qualify for HHC including therapy and nursing as well as a ORTHODONTIST at [facility] through her insurance if she did not want to pay privately. Pt dtr states she does not want white trash or slimy people. Made her aware this RN CM could email her a list of HHC providers including quality and resource use data and consistent with the patient?s preferred geographic region, medical needs, and insurance network. She may do her research on the agencies. Asked for her to list her top 3 choices. Her email is [email or web address]. Pt dtr states no further concerns/needs. CM to follow. Advised pt dtr to ask CM if any further question/concerns/needs arise, voices understanding. Pt Goal: Home Plan: Home with HHC
--- NOTE | 2021-06-16 15:20 | NURSING ---
Daughter Catherine Espinoza at bedside at this time, currently agreeable to keep patient here in the hospital if she is allowed to stay in room with patient overnight. Daughter given permission by this nurse to stay overnight, with the understanding that appropriate PPE be maintained and hand hygiene completed upon entry/exit of room. Daughter stated that she would not make any rash decisions and will make a few phone calls and ask for some opinions. Daughter stated that she will stay until she leaves, with or without her mother. Dr. Neri aware of current decision being made by daughter.
[2021-06-16] MEDS: Pravastatin 20 MG Tablet 60 MG PO (20:43)
[2021-06-16] MEDS: Donepezil HCl 10 MG Tablet PO (20:43)
[2021-06-17] VITALS (7 sets, daily range): BP systolic 129–137; BP diastolic 72–73; PULSE 62–70; RESP 15–18; TEMP 36.1; O2SAT 92–98
--- NOTE | 2021-06-17 00:07 | NURSING ---
2000: PT SITTING IN RECLINER ON ROOM AIR WITH DAUGHTER @ BEDSIDE. CURRENTLY POX 98% ON ROOM AIR. DAUGHTER HAS PATIENT AMBULATING IN ROOM AND DOING HER IS. VSS. WILL CONTINUE TO MONITOR POX. NO S/S OF RESP DISTRESS NOTED AT THIS TIME.
--- NOTE | 2021-06-17 02:16 | NURSING ---
refusing tele at this time.
[2021-06-17 05:45] LABS: Hematocrit 40.1 % (37-47); Mean Corp Hgb Conc 32.4 g/dL (32-36); Mean Corpuscular Hgb 29.6 pg (27.0-32.0); Mean Corpuscular Volume 91.3 fL (81-99); Mean Platelet Vol. 11.4 fl (6.2-12.0); Platelet Count 172 K/mm3 (150-450); RBC Distribution Width CV 12.9 % (11.6-14.6); RBC Distribution Width SD 42.7 fl (35.1-43.9); Red Blood Count 4.39 M/mm3 (4.2-5.4)
--- NOTE | 2021-06-17 06:15 | NURSING ---
PT MAINTAINED OXYGEN SATURATIONS ON ROOM AIR THIS SHIFT. 94-98%.
[2021-06-17 06:27] LABS: ALB/GLOB Ratio 0.8 RATIO (0.9-2.4); AST(SGOT) 34 U/L (15-37); Alanine Aminotransfer ALT/SGPT 26 U/L (13-56); Albumin, Serum 2.7 g/dL (3.2-5.0); Alkaline Phosphatase 56 U/L (45-117); Anion Gap 10 (5-15); BUN 22 mg/dL (7-18); BUN/Creat Ratio 36.2 RATIO (10-20); Calcium,Total 8.2 mg/dL (8.5-10.1); Chloride 109 mmol/L (98-107); Creatinine, Serum 0.61 mg/dL (0.55-1.02); EST Glomerular Filtration Rate 101 mL/min (>60); Est Glom Filt Rate - Afr Amer 122 mL/min (>60); Estimated Creatinine Clearance 38.75 ml/min; Globulin 3.5 g/dL (2.2-4.2); Glucose 127 mg/dL (74-106); Protein, Total 6.2 g/dL (6.4-8.2); Sodium Level 140 mmol/L (136-145)
--- NOTE | 2021-06-17 07:55 | NURSING ---
pt daughter at bedside and stated she sis not want dr mae in room again. and that she would be open for another dr to come and discharge them if it is done in the next few minutes. is not, they will be leaving ama. notified dr mae and she stated that there is not another dr here to discharge her and if she wants to wait for her to do the paperwork she will, but if not she can leave ama. ama papers taken into room and daughter refused to sign, stated that pt is ready for discharge so they are not technically leaving ama. told daughter to watch pt for increased weakness, sob, and check oxygen sats at home. if pt drops below 88% contact dr and go to er. daughter should contact pt's primary dr for F/u appt. daughter agreed to set up f/u with primary dr. daughter placed pt in own w/c and left hospital.
--- NOTE | 2021-06-17 12:04 | PCM.DC.SUM ---
Providers Date of Admission: 06/15/21 Primary Care Physician: Dr. Tariq Akers, DO Reason For Visit: HYPOXIA, COVID Diagnosis Discharge Diagnosis (1) COVID-19: Status: Acute Code(s): U07.1 - COVID-19 (2) Acute respiratory failure with hypoxia: Status: Acute Code(s): J96.01 - Acute respiratory failure with hypoxia Medications at Discharge Home Medications aspirin 81 mg tablet,delayed release 81 mg PO DAILY 10/11/17 acetaminophen 500 mg tablet 500 mg PO Q6H PRN 03/15/19 nitroglycerin 0.4 mg sublingual tablet 0.4 mg SUBLINGUAL Q5-15M PRN #25 tab 03/15/19 metoprolol tartrate 50 mg tablet 50 mg PO DAILY #90 tab 05/05/20 donepezil 10 mg tablet 10 mg PO QHS #90 tab 11/18/20 pravastatin 40 mg tablet 60 mg PO DAILY #135 tab 03/03/21 losartan 50 mg tablet 50 mg PO DAILY #90 tab 05/27/21 Hospital Course Operations None Procedures None Summary of Care Provided Minutes Spent on Discharge: 45 Hospital Course: Patient is an 80-year-old female with an extensive past medical history as outlined who was admitted through the ED on 06/15/2021 with a complaint of cough and progressively worsening fatigue, weakness and malaise as well as shortness of breath. Patient had not been vaccinated against COVID. In the emergency room, she was noted to be saturating at 87% on room air but improved to 93 to 96% on 2 L of oxygen. Chest x-ray showed no acute cardiopulmonary findings and COVID test was positive. She was admitted and managed for acute hypoxic respiratory failure due to COVID-19 infection. She was started on Decadron. It was documented that patient would be started on remdesivir. This was not initially ordered so was subsequently ordered and patient received a dose of it. It subsequently transpired that family had adamantly refused to have patient received remdesivir she remdesivir was discontinued after patient received the initial dose. Family was very agitated and upset and wanted to sign patient out AGAINST MEDICAL ADVICE. They were counseled by the medical staff and daughter stated that the only condition under which she would let her mother stay was if she stayed with her overnight. This was agreed to. Patient was subsequently weaned off of oxygen and was on room air on 06/17/2021. She had a walking pulse ox which showed that she did not require any oxygen. Daughter refused to wait for patient to be evaluated by medical team and left AGAINST MEDICAL ADVICE with the patient in the morning of 06/17/2021. Patient was not seen and examined as daughter refused to have her examined by the hospitalist caring for the patient and decided to leave AGAINST MEDICAL ADVICE. Physical Exam Narrative no physical exam done as patient was not seen before she was taken out of the hospital by her daughter Weight / BMI Weight Weight: 134 lb 14.766 oz Body Mass Index (BMI) 23.1 ABG / Lab / Microbiology Data Result Diagrams: 06/17/21 05:15 06/17/21 05:15 Laboratory: Laboratory Results - last 24 hr 06/17/21 05:15: WBC 10.0, RBC 4.39, Hgb 13.0, Hct 40.1, MCV 91.3, MCH 29.6, MCHC 32.4, RDW Std Deviation 42.7, RDW Coeff of Keiry 12.9, Plt Count 172, MPV 11.4 06/17/21 05:15: Sodium 140, Potassium 4.0, Chloride 109 H, Carbon Dioxide 21.0, Anion Gap 10, BUN 22 H, Creatinine 0.61, Estim Creat Clear Calc 38.75, Est GFR (MDRD) Af Amer 122, Est GFR (MDRD) Non-Af 101, BUN/Creatinine Ratio 36.2 H, Glucose 127 H, Calcium 8.2 L, Total Bilirubin 0.30, AST 34, ALT 26, Alkaline Phosphatase 56, Total Protein 6.2 L, Albumin 2.7 L, Globulin 3.5, Albumin/Globulin Ratio 0.8 L Microbiology: Microbiology 06/15/21 22:55 Mucosa - Nasopharyngeal Respiratory Panel (PCR) - Final 06/15/21 18:32 Urine Catheter - Catheter Legionella Antigen - Final 06/15/21 18:32 Urine Catheter - Catheter Streptococcus pneumoniae Antigen (M - Final 06/15/21 17:30 Nasal Secretion SARS-CoV-2 Antigen (Rapid) - Final SARS-CoV-2 (COVID 19) Meaningful Use Info Meaningful Use Diagnoses (Choose all that apply): None applicable Discharge Plan Admission Admit Date/Time: 06/15/21 19:32 Attending Provider: Chelsea Neri Primary Care Provider: Tariq Akers Consulting Providers: Carmen Suarez Instructions Additional Instructions / Restrictions: Plenty fluids and rest. Follow-up with your primary care physician to ensure you are improving. Tylenol for fever. Return to the emergency department if feeling worse. Discharge Orders/Prescriptions Prescriptions: No Action aspirin 81 mg tablet,delayed release (DR/EC) 81 mg PO DAILY RF: 0 acetaminophen [Tylenol Extra Strength] 500 mg tablet 500 mg PO Q6H PRN (Reason: Pain) RF: 0 nitroglycerin [Nitrostat] 0.4 mg tablet, sublingual 0.4 mg SUBLINGUAL Q5-15M PRN (Reason: cp) Qty: 25 RF: 1 donepezil 10 mg tablet 10 mg PO QHS Qty: 90 RF: 1 metoprolol tartrate 50 mg tablet 50 mg PO DAILY Qty: 90 RF: 3 pravastatin 40 mg tablet 60 mg PO DAILY Qty: 135 RF: 3 losartan 50 mg tablet 50 mg PO DAILY Qty: 90 RF: 3 Referrals / Follow Up: Tariq Akers DO [Primary Care Provider] - 1 Week if not improving Disposition Disposition (needs filled in before D/C Order can be placed): Against Medical Advice Charges/Coding Visit Charges Inpatient E&M: 11279 Disch Hosp
--- NOTE | 2021-06-17 12:52 | CASEMGMT ---
Social Work Note SW reviewed chart. Pt's daughter took pt out AMA this morning. Pt did not qualify for home oxygen. SW updated that pt was not able to discharge home with medications as pt left AMA and also HHC could not be arranged since pt left AMA. KARLA placed a call to Tariq with [facility] and provided [facility] referral. Roseanna Hamilton MARKETING COMMUNICATIONS LEADER, GRAIN MIXER
--- NOTE | 2021-06-18 09:49 | CASEMGMT ---
Received vm from pt dtr Catherine Espinoza who states she would like to choose [facility] and be set up. Returned tc to her, she is aware that this RN CM is unable to set up HHC as patient left against medical advice. She states, that is fine and she has an email in to the PCP to do. Made her aware that would be where this RN CM directs her. She asked who she can call to make a complaint. Referred her to the patient advocate. She asked if the patient advocate is employed by [facility], made her aware he was. She states she does not want to speak with him. She states she will go way higher than him. She denies any further needs and thanked this RN CM for the call.
== END 2021-06-17 08:02 | disposition left against medical advice (07) | DRG 177 ==
LOC: ED 19:24 → MS3 19:50
PROVIDERS: Admitting Provider Family Medicine; Emergency Provider Emergency Medicine; PCP Student in an Organized Health Care Education/Training Program; Visit Provider Student in an Organized Health Care Education/Training Program
DX: U07.1 COVID-19 (principal); J96.01 Acute respiratory failure with hypoxia; I26.99 Other pulmonary embolism without acute cor pulmonale; J12.82 Pneumonia due to coronavirus disease 2019; F03.90 Unspecified dementia, unspecified severity, without behavioral disturbance, psychotic disturbance, mood disturbance, and anxiety; E78.00 Pure hypercholesterolemia, unspecified; I10 Essential (primary) hypertension; I25.10 Atherosclerotic heart disease of native coronary artery without angina pectoris; E78.5 Hyperlipidemia, unspecified; I25.2 Old myocardial infarction; Z79.82 Long term (current) use of aspirin; Z66 Do not resuscitate; Z86.73 Personal history of transient ischemic attack (TIA), and cerebral infarction without residual deficits; Z28.310 Unvaccinated for COVID-19; Z28.9 Immunization not carried out for unspecified reason; Z95.5 Presence of coronary angioplasty implant and graft
CPT/HCPCS: 36415; 71045; 71275; 80048; 80053; 80076; 81001; 82728; 83615; 83880; 84145; 84484; 85025; 85027; 85379; 86140; 87449; 87633; 87811; 93005; 97162; 97166; 99251; 99284; J7030; J7050; Q9967; A4216; G0463; J0248

== ENCOUNTER 2024-07-12 07:54 | Emergency (ER) | payer MEDICARE, OTHER, SELFPAY ==
[2024-07-12 07:56] VITALS: BP 198/93; PULSE 81; RESP 16; TEMP 36.4; O2SAT 96; BMI 26.1
--- NOTE | 2024-07-12 08:16 | CT_ITS ---
PROCEDURE: BRAIN/HEAD WITHOUT CONTRAST 07/12/2024 REASON FOR EXAM: HEAD INJURY due to a fall. Laceration to the back of the head. TECHNIQUE: Head CT without intravenous contrast. Coronal and Sagittal reconstruction series were provided. One or more dose reduction techniques were used (e.g., Automated exposure control, adjustment of the mA and/or kV according to patient size, use of iterative reconstruction technique. RADIATION DOSE SUMMARY: CTDlvol: 44.99 mGy DLP: 796 mGycm COMPARISON: None FINDINGS: Brain: Low density in the periventricular white matter suggests mild chronic small vessel ischemic changes. CSF Spaces: Moderate generalized cerebral atrophy Sinuses/Mastoids: Clear at visualized levels Bones: Atherosclerotic calcification of the vertebral arteries and cavernous portions of the internal carotid arteries bilaterally. CT/Brain/Head without Contrast IMPRESSION: CHRONIC CHANGES. NO ACUTE FINDINGS. Reading Location: [id number]
--- NOTE | 2024-07-12 08:16 | CT_ITS ---
PROCEDURE: SPINE CERVICAL WITHOUT CONTRAS 07/12/2024 REASON FOR EXAM: FALL Pain following a fall. TECHNIQUE: Cervical spine CT without contrast. Coronal and Sagittal reconstruction series were provided. One or more dose reduction techniques were used (e.g., Automated exposure control, adjustment of the mA and/or kV according to patient size, use of iterative reconstruction technique RADIATION DOSE SUMMARY: CTDlvol: 15.6 mGy DLP: 340.03 mGycm COMPARISON: None FINDINGS: Alignment: Straightening of the normal cervical lordosis most likely secondary to muscular spasm. Vertebrae: Multilevel spondylosis Soft Tissues: Atherosclerotic calcification of the carotid bifurcations. Other: C1-2: Degenerative changes of the atlantoaxial joint. C2-3: Disc space is relatively well-maintained. Facet joint osteoarthritis and hypertrophy. No significant stenosis is seen. C3-4: Disc space is relatively well-maintained. Facet joint osteoarthritis and hypertrophy worse on the left side. Mild degree of bilateral neural foraminal stenosis. C4-5: Mild degree of disc space narrowing. Spondylosis. Uncovertebral arthrosis. Moderate degree of bilateral neural foraminal stenosis worse on the right side. C5-6: Marked degree of disc space narrowing. Spondylosis. Uncovertebral arthrosis. Moderate degree of bilateral neural foraminal stenosis. C6-7: Marked degree of disc space narrowing. Spondylosis. Uncovertebral arthrosis and facet joint osteoarthritis. Moderate degree of bilateral neural foraminal stenosis. C7-T1: Disc space narrowing and spondylosis. CT/Spine Cervical without Contras IMPRESSION: NO ACUTE CERVICAL FRACTURE. Degenerative changes of the cervical spine with a bilateral neural foraminal st enosis as described. Reading Location: [id number]
[2024-07-12] MEDS: Lidocaine 1% /Epi 1:100 (20ml) 20 ML Vial 5 ML INFILT (08:36)
--- NOTE | 2024-07-12 08:40 | RAD_ITS ---
PROCEDURE: PELVIS 1 OR 2 VIEWS 07/12/2024 REASON FOR EXAM: FALL TECHNIQUE: 1 view(s) of the pelvis. COMPARISON: None FINDINGS: Hardware: None Bones: No fracture is seen. Joints: Degenerative changes of the sacroiliac joints as well as osteoarthritis of both hip joints. soft tissues: Large amount of fecal material is seen in the colon. Other: Calcified right phlebolith. RAD/Pelvis 1 or 2 Views IMPRESSION: Degenerative changes as described. No evidence of fracture. Large amount of fecal material is seen in the colon. Reading Location: [id number]
--- NOTE | 2024-07-12 08:46 | EDS_ITS ---
HPI History of Present Illness Chief Complaint: Head Injury Detail of Chief Complaint: Fall with head injury Informant: patient and family Narrative Narrative: Patient presents to the emergency department via EMS from home after a fall. [place] menard is not sure what happened as she has dementia. She does live alone. She is on hospice who comes over about 3 times a week. Patient called her daughter this morning telling her that she had fallen and could not get up. Daughter drove over and found patient on the floor next to her bed. Normally patient gets up and then sits on the edge of the bed and slides off the bed. Daughter postulates she may have hit her head on the frame of the bed. EMS was then called to bring her in as she had a laceration to the back portion of her head. Patient not anticoagulated. Patient denies significant headache or neck pain. She denies chest pain or abdominal pain. She has not ambulated since the fall. [facility] Medical History (Updated 07/12/24 @ 09:[address] Harjeet Sabillon, DO) Unable to ambulate Weakness Hypoxia History of [place] (myocardial infarction) History of TIAs COVID-19 Presence of stent in coronary artery (~02/22/11) Old myocardial infarction Pure hypercholesterolemia Essential hypertension NSTEMI (non-ST elevated myocardial infarction) Atherosclerosis of coronary artery of [place] heart without angina pectoris Home Medications ?Medication ?Instructions ?Recorded ?Last Taken ?Type aspirin 81 mg tablet,delayed 81 mg PO DAILY 10/11/17 U nknown History release nitroglycerin 0.4 mg sublingual 0.4 mg sublingual Q5-1 5M PRN cp 07/20/21 Unknown Rx tablet (Nitrostat) #25 tabs metoprolol tartrate 50 mg tablet 50 mg PO DAILY #90 ta bs 09/06/23 Unknown Rx losartan 50 mg tablet See Rx Instructions .Route 0 09/30/23 Unknown Rx .COMPLEX #90 tabs Allergy/AdvReac Type Severity Reaction Status Date / Time atorvastatin (From Lipitor) AdvReac Intermediate myalgias Verified 07/12/24 07:59 naproxen AdvReac Other Verified 07/12/24 07:59 Family History (Reviewed 01/14/23 @ 14:59 by Roxana Brady PROGRAM DIRECTOR SCOUTING, PROGRAM DIRECTOR SCOUTING-C) Father CAD (coronary artery disease) Mother CVA (cerebral vascular accident) Brother Pacemaker Son Hyperlipidemia Surgical History (Reviewed 01/14/23 @ 14:59 by Roxana Brady PROGRAM DIRECTOR SCOUTING, PROGRAM DIRECTOR SCOUTING-C) Presence of coronary angioplasty implant and graft (~02/22/11) Social History household members: none Smoking Status: Never smoker alcohol intake: never substance use type: does not use caffeine: No ROS ROS ED Review of Systems ROS Unobtainable: other Constitutional Constitutional ED: Reports lethargy; Denies chills, fever(s), sweats or weight loss Eyes Eyes: Denies blurry vision, change in vision or diplopia ENT ENT ED: Reports other Details: Scalp laceration ; Denies rhinorrhea or sore throat Cardiovascular Cardiovascular: Denies chest pain, orthopnea or racing heartbeat Respiratory/Chest Respiratory/Chest: Denies cough, dyspnea, dyspnea on exertion, orthopnea or sputum Gastrointestinal Gastrointestinal: Denies abdominal pain, diarrhea, nausea or vomiting Genitourinary Genitourinary ED: Denies dysuria, hematuria or urinary frequency Musculoskeletal Musculoskeletal: Denies arthralgias, back pain, myalgias or neck pain Integumentary Denies abscess, Abrasions or rash Neurologic Neurologic: Reports headache(s); Denies weakness Psychiatric Psychiatric: Denies anxiety, depression or suicidal thoughts Endocrine Endocrinology: Denies polydipsia, polyphagia or polyuria Hematologic/Lymphatic Hematologic/Lymphatic: Denies easy bleeding, easy bruising or lymphadenopathy Allergic/Immunologic Allergic/Immunologic ED: Denies mouth swelling, tongue swelling or urticaria EXAM Physical Exam Const Vital Signs: 07/12/24 07:55 07/12/24 07:56 Temperature 97.6 F L Temperature Source Temporal Pulse Rate 81 Respiratory Rate 16 Respiratory Effort Normal Non-Labored Respiratory Depth Normal Respiratory Pattern Normal Blood Pressure 198/93 H Blood Pressure Mean 128 Pulse Ox 96 Oxygen Delivery Method Room Air Positive well nourished and well developed General Appearance ED: well developed and NAD HEENT Reports TM's clear and moist mucous membranes HEENT Narrative: Patient has a 3 cm posterior occiput laceration. No bony step-offs or depressions. No hemotympanum normocephalic and atraumatic; Negative for trauma or tenderness Tympanic Membrane ED: Yes TM's clear Eyes PERRL and EOMs intact bilaterally General Eye ED: Negative for pale conjunctiva or scleral icterus Neck no lymphadenopathy, supple and no JVD General: Negative for tenderness Chest Wall inspection of chest normal and palpation of chest normal Chest: Negative for tenderness Resp normal respiratory effort and clear to auscultation bilaterally Effort and Inspection: Negative for respiratory distress or pain with movement Auscultation: Negative for rhonchi, wheezes or diminished lung sounds Cardio regular rate, regular rhythm, S1 normal heart sound, S2 normal heart sound and no murmurs Peripheral Pulses: pulses 2+ throughout GI normal to inspection, nondistended, normoactive bowel sounds, soft to palpation, non-tender, non-distended and no masses Back/Spine no CVA tenderness and no thoracic nor lumbar tenderness Extremity normal to inspection General Extremety ED: Negative for edema General Extremity: Negative for edema Neuro oriented x3, CN's II-XII intact bilaterally, no sensory deficits noted and gait normal Sensorium / Orientation: awake, alert, oriented to person, oriented to place and oriented to time Motor Exam: strength 5/5 throughout and strength abnormal Psych mental status grossly normal Skin no rashes or lesions noted and no wounds PROC Procedures Lacerations Scalp laceration: Length: 1.18 in Depth: Sub Q Shape: Linear Prep: Sterile Conditions and Shure-Clens Laceration repair: Lidocaine with epi Irrigated (ml): 50 Number of Sutures/[place]: 3 Suture Information: Ethilon, Simple and - (3-0 nylon used) Comment: Patient tolerated procedure well MDM MDM MDM Narrative Medical decision making narrative: Patient presents with a head injury after suspected fall from bed. CT scan of the brain without contrast showed chronic microvascular changes. 1 view pelvis x-ray without fractures or dislocations. CT of the cervical spine showed no fractures but did show degenerative changes. Patient had suture repair of her scalp laceration please see procedure note. Advised to follow-up in 10 days for suture removal. Discharged home stable condition Radiography Diagnostic Testing: Clinical Impression(s) from Imaging Studies Brain CT 07/12/24 08:16 IMPRESSION: CHRONIC CHANGES. NO ACUTE FINDINGS. Reading Location: [id number] Pelvis X-Ray 07/12/24 08:40 IMPRESSION: Degenerative changes as described. No evidence of fracture. Large amount of fecal material is seen in the colon. Reading Location: [id number] 1 view x-ray of pelvis obtained interpreted by myself as no evidence of fracture or dislocation. Radiology agreement. Radiology also noted large amount of fecal material in the colon. Discharge Plan Triage Chief Complaint: Head Injury ED Provider: Harjeet Sabillon Dx/Rx/DC Orders Clinical Impression: Fall, Closed head injury, Laceration of scalp Instructions: ED Fall with Uncertain Cause, ED Head Injury (Adult), ED Laceration, All Closures Prescriptions: No Action aspirin 81 mg tablet,delayed release (DR/EC) 81 mg PO DAILY nitroglycerin [Nitrostat] 0.4 mg tablet, sublingual 0.4 mg SUBLINGUAL Q5-15M PRN (Reason: cp) Qty: 25 1RF metoprolol tartrate 50 mg tablet 50 mg PO DAILY Qty: 90 3RF losartan 50 mg tablet See Rx Instructions .ROUTE .COMPLEX Qty: 90 3RF Dose Instruction: TAKE 1 TABLET DAILY Rx Instructions: TAKE 1 TABLET DAILY Primary Care Provider: Tariq Akers Referrals: Tariq Akers DO [Primary Care Provider] - 10 Day for suture removal Print Language: [place] Disposition Disposition: Home, Self Care
[2024-07-12 08:55] VITALS: BP 166/85; PULSE 71; RESP 16; O2SAT 99
[2024-07-12] MEDS: Diphth,Pertuss(Acell),Tet Vac 0.5 ML Vial IM (09:25)
[2024-07-12 09:26] VITALS: BP 166/85; PULSE 71; RESP 16; TEMP 36.4; O2SAT 99
== END 2024-07-12 09:34 | disposition home or self-care (01) ==
PROVIDERS: Emergency Provider Emergency Medicine; PCP Student in an Organized Health Care Education/Training Program; Visit Provider Emergency Medicine
DX: S01.01XA Laceration without foreign body of scalp, initial encounter (principal); F03.90 Unspecified dementia, unspecified severity, without behavioral disturbance, psychotic disturbance, mood disturbance, and anxiety; I25.10 Atherosclerotic heart disease of native coronary artery without angina pectoris; I10 Essential (primary) hypertension; I25.2 Old myocardial infarction; Z79.82 Long term (current) use of aspirin; Z79.899 Other long term (current) drug therapy; Z86.16 Personal history of COVID-19; Z86.73 Personal history of transient ischemic attack (TIA), and cerebral infarction without residual deficits; W19.XXXA Unspecified fall, initial encounter; Z95.5 Presence of coronary angioplasty implant and graft
CPT/HCPCS: 12001; 70450; 72125; 72170; 90715; 99284